=== PATIENT | female | born 1970 | race Caucasian/White ===

== ENCOUNTER → 2024-01-27 17:02 | Outpatient (REF) | payer BC, SELFPAY | LOC: HWWDC 17:02 | PROVIDERS: ATTENDING PHYSICIAN Nurse Practitioner Adult Health; FAMILY PHYSICIAN Nurse Practitioner Adult Health | DX: Z12.31 Encounter for screening mammogram for malignant neoplasm of breast (principal) | CPT/HCPCS: 77063; 77067 ==

== ENCOUNTER 2024-02-17 15:20 | Emergency (ER) | payer BC, SELFPAY ==
[2024-02-17 15:27] VITALS: BP 131/73
[2024-02-17 16:05] LABS: % Basophils 0.6 % (0-2); % Eosinophils 2.6 % (0-6); % Lymphocytes 32.4 % (20.5-51.1); % Monocytes 9.2 % (1.7-9.3); % Neutrophils 55.2 % (42.2-75.2); Absolute Eosinophils 0.1 10^3/uL (0-0.7); Absolute Lymphocytes 1.6 10^3/uL (1.2-3.4); Absolute Monocytes 0.5 10^3/uL (0.1-0.6); Absolute Neutrophils 2.7 10^3/uL (1.4-6.5); Hematocrit 42.5 % (37.0-47.0); Hemoglobin 14.9 g/dL (12.0-16.0); Mean Corp Hgb Conc. 35.1 g/dL (33.0-37.0); Mean Corpuscular Volume 91.4 fL (81.0-99.0); Mean Platelet Volume 11.3 fL (7.4-10.4); Nucleated Red Blood Cells % 0 %; Platelet Count 165 10^3/uL (130-400); Red Blood Cell Count 4.65 10^6/uL (4.20-5.40); Red Cell Dist. Width 12.7 % (11.5-14.5); White Blood Cell Count 4.9 10^3/uL (4.8-10.8)
[2024-02-17 16:16] LABS: ALT (SGPT) < 10 U/L (0-35); AST (SGOT) 26 U/L (14-36); Albumin 4.5 g/dl (3.5-5.0); Alkaline Phosphatase 71 U/L (38-126); Blood Urea Nitrogen 18 mg/dl (7-17); Calcium 10.2 mg/dl (8.4-10.2); Carbon Dioxide 29 mmol/L (22-30); Chloride 103 mmol/L (98-107); Glucose 93 mg/dl (70-99); Potassium 4.8 mmol/L (3.5-5.1); Sodium 139 mmol/L (135-145); Total Bilirubin 0.6 mg/dl (0.2-1.3); Total Protein 6.7 g/dl (6.3-8.2); eGFR > 60.00
[2024-02-17 16:27] LABS: Troponin I < 0.012 ng/ml
[2024-02-17 17:39] VITALS: BP 129/89
[2024-02-17 18:00] VITALS: BP 113/72
[2024-02-17 19:00] VITALS: BP 117/70
--- NOTE | 2024-02-17 19:03 | ED.GENMED ---
History of Present Illness
General
Chief Complaint: Chest Pain
Source: patient
Exam Limitations: none
Time Seen by Provider: 02/17/24 18:13
Travel History
Have you had any contact with someone who has COVID-19?: No
Do you have any symptoms of coronavirus? Fever > 100 degrees, chills, cough, shortness of breath, sore throat, loss of taste or smell, muscle aches, or headache?: No
History of Present Illness
History of Present Illness:
This is a 53 year old female that comes in with c/o chest heaviness. States that she was sitting at her desk and she had chest heaviness. States that this lasted for about 20min and then it was gone. States that she is pain free know. Denies any
fever, chills, SOB, abd pain, nausea, vomiting, diarrhea, headache, dizziness, urinary burning.
Past History
Past History
ED Past Medical History: None; Negative Asthma, HTN, Hypercholesterolemia or NIDDM
ED Past Surgical History: Other (Gastric bypass)
Social History
Tobacco: Non-smoker
Alcohol: Occasional
Personal:
Living: with family
Review of Systems
Review of Systems
All Other Systems: ROS reviewed and negative except as documented in HPI and ROS
Constitutional: Reports no symptoms; Denies fever or chills
EENT: Reports no symptoms
Respiratory: Reports no symptoms; Denies cough or trouble breathing
Cardiac: Reports chest pain
ABD/GI: Reports no symptoms; Denies abdominal pain, nausea, vomiting or diarrhea
: Reports no symptoms; Denies dysuria, frequency or urgency
Musculoskeletal: Reports no symptoms
Skin: Reports no symptoms
Neurological: Reports no symptoms; Denies dizzy or headache
Psychiatric: Reports no symptoms
Phy Exam
General Physical Exam
General Presentation: well appearing and no apparent distress
General age: appears stated age
General Skin: warm and dry
General Habitus: normal
General Mental: alert
General Hydration: appears well hydrated
ENT Exam
ENT Exam: TM's normal, pharynx normal and neck supple
Eye Exam
Eye Exam: EOMI
Cardiovascular Exam
Cardiovascular Exam: regular rate/rhythm, no edema, no murmur and normal peripheral pulses
Pulmonary Exam
Pulmonary Exam: lungs clear, no respiratory distress, no rales, chest non tender, no crackles, no rhonchi, no wheezing and no cough
Gastrointestinal Exam
Gastrointestinal Exam: normal bowel sounds, non tender, soft, no organomegaly, no pulsatile mass and non distended
Musculoskeletal Exam
Musculoskeletal Exam: full ROM and no edema
Skin Exam
Skin Exam: normal color, warm/dry, no rash and no petechia
Psychiatric Exam
Psychiatric Exam: normal mood/affect
Scores
Heart Score for Chest Pain Patients
STEMI patient?: No
History: Slightly or Non-Suspicious
ECG: Normal
Age: >45 - <65 years
Risk Factors: No Risk Factors
Troponin: </= Normal Limit
Heart Score for Chest Pain Patients: 1
Heart Score Risk: 2.5% MACE over next 6 weeks
Course
Orders/Labs/Results
Orders:
Orders
02/17/24 15:21
EKG [Electrocardiogram (*1)] Urgent
Reason for Study: Chest Pain
02/17/24 15:22
EKG- Treatment ONCE
02/17/24 15:29
Electrocardiogram (*1) Urgent
Reason for Study: Chest Pain
Cardiac Monitoring- Treatment ONCE
EKG- Treatment ONCE
02/17/24 15:47
Complete Blood Count/With Diff Urgent
Comprehensive Metabolic Panel Urgent
Troponin I Urgent
02/17/24 19:03
Electrocardiogram (*1) Urgent
Reason for Study: Chest Pain
Other Reason for Exam: Repeat with Troponin
EKG- Treatment ONCE
02/17/24 19:04
CR Chest - 2 Views Urgent
Comment:
Reason For Exam: Chest pain
02/17/24 19:17
Troponin I Urgent
Abnormal Lab Results
02/17/24
15:47
MCH 32.0 H pg
(27.0-31.0)
MPV 11.3 H fL
(7.4-10.4)
BUN 18 H mg/dl
(7-17)
02/17/24 15:47
02/17/24 15:47
Very slight Dehydration. Troponin <0.012
Second Troponin <0.012
Vital Signs
Initial and Last Documented VS:
Initial Vital Signs
Temp Pulse Resp BP Pulse Ox
98.3 F 57 18 131/73 100
02/17/24 15:27 02/17/24 15:27 02/17/24 15:27 02/17/24 15:27 02/17/24 15:27
Last Documented Vital Signs
Temp Pulse Resp BP Pulse Ox
98.3 F 57 18 131/73 100
02/17/24 15:27 02/17/24 15:27 02/17/24 15:27 02/17/24 15:27 02/17/24 15:27
MDM/Problems Addressed
Differential Diagnosis Includes:
GERD, Acute coronary syndrome
MDM/Problems Addressed:
This is a 53 year old female that comes in with c/o chest heaviness. State that she was sitting at her desk and she had chest heaviness that lasted for about 20min.
Will get labs, chest x-ray and ECG's
Repeat ECG: Rate 55, Sinus Eduardo, Normal axis, Normal QRS, Negative for ischemia. Checked by Dr. Kendrick
Back into see patient. Explained that her blood work was normal along with her ECG and Chest. Will place patient on the Cardiology hot for further evaluation. Patient to return with increased or changing pain. Patient has been totally pain free
while here.
Chronic conditions affecting care:
NA
Acute Exacerbation and/or Progression of Chronic Illness:
NA
*Pulse Oximetry
Patient hypoxic: no
*EKG
Interpreted by ED Provider?: Yes
Heart Rate: 55
Rate: bradycardiac
Rhythm: sinus
[place]: normal axis
Interval: normal interval
QRS Pattern: normal QRS
Ischemia: no ischemia
*Order Editor Interpretation
Rate: bradycardiac
Heart Rate: 56
Rhythm: sinus (Eduardo)
*Critical Care Note
Total Time (30-74mins, 75-104mins- exclusive of procedures): Not Applicable
ED Attending Note
-
Portions of this chart may have been created with voice recognition software.� Occasional wrong word or��sound alike� substitutions may have occurred due to the inherent limitations of voice recognition software.
Discharge Plan
Departure
Patient Disposition: Home (Routine Discharge)
Date of Disposition: 02/17/24
Time of Disposition: 20:02
Patient with high blood pressure during this ER visit?: No
Condition: Good
Covid-19: Not Applicable
Discharge Problem:
Chest pain
Instructions: Chest Pain [facility] Follow Up
Referrals:
UNKNOWN - PT DOES,NOT KNOW [Family Provider] -
Activity Restrictions/Additional Instructions:
As discussed, your blood work and ECG are normal. You have been place on the Cardiology hot line and they will call you the next business day. Please try and decrease any caffeine intact as this will increase any reflux. Follow up with the family
doctor for recheck. IF YOU HAVE INCREASED OR CHANGING PAIN, OR YOU HAVE ANY OTHER CONCERNS PLEASE RETURN TO THE EMERGENCY ROOM.
Interventions
Interventions:
*Risk Screen - Suicide Last Done: 02/17/24 15:27
*General Assessment Last Done: 02/17/24 15:27
*Neglect/Abuse Screening Last Done: 02/17/24 15:27
ED- Fall Risk Assessment Last Done: 02/17/24 17:45
*ED COVID-19 Vaccine History Last Done: 02/17/24 15:27
ED- Cardiac Assessment Last Done: 02/17/24 17:45
Discharge Date and Time
Print Language: WELSH
[2024-02-17 19:51] VITALS: BP 107/63
[2024-02-17 19:53] LABS: Troponin I < 0.012 ng/ml
[2024-02-17 20:00] VITALS: BP 106/70
== END 2024-02-17 20:36 | disposition home or self-care (01) ==
LOC: EMR 15:20
PROVIDERS: Clinical Nurse Specialist Family Health; Emergency Medicine; EMERGENCY PHYSICIAN Emergency Medicine
DX: R07.89 Other chest pain (principal); Z88.2 Allergy status to sulfonamides; Z98.84 Bariatric surgery status
CPT/HCPCS: 99284; 71046; 80053; 84484; 85025; 93005

== ENCOUNTER → 2025-02-12 13:50 | Outpatient (REF) | payer BC, SELFPAY | LOC: WDC 13:50 | PROVIDERS: ATTENDING PHYSICIAN Nurse Practitioner Adult Health; FAMILY PHYSICIAN Nurse Practitioner Adult Health | DX: Z12.31 Encounter for screening mammogram for malignant neoplasm of breast (principal) | CPT/HCPCS: 77063; 77067 ==